=== PATIENT | female | born 1990 | race Caucasian/White ===

== ENCOUNTER 2019-03-16 13:24 | Inpatient (IN) ==
[2019-03-16] MEDS ORDERED: ONDANSETRON 4 MG/2 ML VIAL IV PRN ×2 (13:33→15:11)
[2019-03-16] MEDS ORDERED: LACTATED RINGERS 1,000 ML IV ONE (13:34)
[2019-03-16] MEDS ORDERED: FAMOTIDINE 20 MG/2 ML VIAL IV ONE (13:34)
[2019-03-16] MEDS ORDERED: CITRIC ACID/SODIUM CITRATE 30 ML UDCUP PO ONE (13:34)
[2019-03-16] MEDS ORDERED: diphenhydrAMINE 50 MG/1 ML VIAL IV PRN ×2 (13:34)
[2019-03-16] MEDS ORDERED: hydrOXYzine HCL 25 MG/1 ML VIAL IM PRN (13:34)
[2019-03-16] MEDS ORDERED: OXYTOCIN 10 UNIT/ML VIAL IM ONE (13:35)
[2019-03-16] MEDS ORDERED: CLINDAMYCIN INJ 900 MG in PREMIX 1 EACH IV ONE (13:35)
[2019-03-16] MEDS ORDERED: OXYTOCIN/LR 30 UNIT/1,000 ML BAG IV ONE (13:36)
[2019-03-16 13:53] LABS: Basophils % 0.3 % (0.0-0.8); Hematocrit 27.5 VOL% (35.7-47.0); Immature Granulocytes % 1.7 %; Immature Granulocytes Absolute 0.19 #; Lymphocytes # 1.8 10*3/uL (1.4-4.0); Lymphocytes % 16.2 % (21.3-54.2); Mean Corpuscular HGB Conc 29.1 GM/DL (32-36); Mean Corpuscular Volume 70.7 FL (87-102); Monocytes % 9.5 % (1.7-12.7); NRBC # 0.05 10*3/uL; Neutrophils % 72.3 % (38.7-73.9); Platelet Count 141 T/CUMM (130-400); Red Blood Count 3.89 MC/CUMM (3.8-5.5); Red Cell Distribution Width 18.4 % (9.3-17.3)
[2019-03-16] MEDS ORDERED: BUPIVACAINE SPINAL 0.75% 2 ML AMP SPINAL ONE (13:58)
[2019-03-16] MEDS ORDERED: PHENYLEPHRINE 1 MG/10 ML SYRINGE IV ONE (13:58)
[2019-03-16] MEDS ORDERED: MORPHINE 10 MG/10 ML VIAL ONE (13:59)
[2019-03-16] MEDS ORDERED: MIDAZOLAM 2 MG/2 ML VIAL ONE (13:59)
[2019-03-16] MEDS ORDERED: LACTATED RINGERS 1,000 ML IV SCH ×2 (14:00→15:30)
[2019-03-16] MEDS ORDERED: BUPIVACAINE 0.25% 50 ML VIAL ONE (14:05)
[2019-03-16] MEDS ORDERED: DEXAMETHASONE 4 MG/1 ML VIAL ONE (14:05)
[2019-03-16] MEDS ORDERED: EPINEPHrine 1 MG/ML VIAL ONE (14:06)
[2019-03-16 14:16] LABS: Albumin 2.5 G/DL (3.4-5.0); Bilirubin,Total 0.5 MG/DL (0.2-1.0); Calcium 8.4 MG/DL (8.5-10.1); Osmolality,Calculated 276.4 MOS/KG (273-304); Total Protein 6.9 G/DL (6.4-8.3)
[2019-03-16 14:40] LABS: Hypochromasia 1+; Lymphocytes 16 % (20-55); Platelet Estimate Adequate; Segmented Neutrophils 75 % (50-85); Total Cells Counted 100
[2019-03-16 14:41] LABS: Anisocytosis 1+; Microcytosis 1+; Ovalocytes Slight; Poikilocytosis 1+; Schistocytes Slight
[2019-03-16 15:08] LABS: Cord Arterial Blood HCO3 23.7 MMOL/L
[2019-03-16 15:11] LABS: Cord Venous Blood HCO3 24.9 MMOL/L; Cord Venous Blood PCO2 45.2 MMHG; Cord Venous Blood PO2 25.2
[2019-03-16] MEDS ORDERED: ACETAMINOPHEN 325 MG TABLET PO PRN (15:11)
[2019-03-16] MEDS ORDERED: OXYTOCIN/LR 20 UNIT/1,000 ML BAG IV ONE (15:11)
[2019-03-16] MEDS ORDERED: RHO(D) IMMUNE GLOBULIN 300 MCG SYRINGE IM ONE (15:11)
[2019-03-16] MEDS ORDERED: MAGNESIUM HYDROXIDE SUSP 30 ML UDCUP PO PRN (15:11)
[2019-03-16] MEDS ORDERED: KETAMINE 500 MG/10 ML VIAL ONE (15:26)
[2019-03-16 17:54] LABS: Apearance,Urine CLEAR (Clear); Bilirubin,Urine Negative (Negative); Blood, Urine Negative (Negative); Glucose,Urine (UA) Negative (Negative); Ketones,Urine Negative (Negative); Mucus,Urine Occasional /LPF (Occasional); Nitrite,Urine Negative (Negative); Protein,Urine 30 MG/DL; RBC,Urine 6 /HPF (0-4); Squamous Epithelial Cell,Urine Occasional /HPF (0-10); Urine Color Yellow (Yellow); Urine Specific Gravity 1.028 (1.001-1.035); WBC,Urine 25 /HPF (0-6)
[2019-03-16] MEDS: DOCUSATE SODIUM 100 MG CAPSULE PO SCH (21:04)
[2019-03-16] MEDS: FERROUS SULFATE 325 MG TABLET PO SCH (21:04)
[2019-03-16] MEDS ORDERED: ceFAZolin 1,000 MG in SYRINGE 1 EACH IV SCH (22:00)
[2019-03-16] MEDS: CLINDAMYCIN INJ 900 MG in PREMIX 1 EACH IV SCH (22:22)
[2019-03-16 22:45] LABS: Basophils % 0.1 % (0.0-0.8); Hematocrit 23.3 VOL% (35.7-47.0); Hemoglobin 6.8 GM/DL (12.0-16.0); Immature Granulocytes % 1.2 %; Immature Granulocytes Absolute 0.17 #; Lymphocytes # 1.4 10*3/uL (1.4-4.0); Lymphocytes % 9.9 % (21.3-54.2); Mean Corpuscular HGB Conc 29.2 GM/DL (32-36); NRBC # 0.04 10*3/uL; Neutrophils % 83.8 % (38.7-73.9); Platelet Count 122 T/CUMM (130-400); Red Blood Count 3.33 MC/CUMM (3.8-5.5); White Blood Count 14.5 T/CUMM (4-12)
[2019-03-16 23:04] LABS: Elliptocytes 2+; Hypochromasia 1+; Ovalocytes 1+; Platelet Estimate Normal
[2019-03-16 23:06] LABS: Microcytosis 1+
[2019-03-16] MEDS ORDERED: SODIUM CHLORIDE 0.9% 1,000 ML IV PRN (23:08)
[2019-03-17] MEDS: IBUPROFEN 800 MG TABLET PO PRN ×2 (00:20→11:58)
[2019-03-17] MEDS: CLINDAMYCIN INJ 900 MG in PREMIX 1 EACH IV SCH (06:23)
[2019-03-17] MEDS: DOCUSATE SODIUM 100 MG CAPSULE PO SCH ×2 (09:01→21:59)
[2019-03-17] MEDS: FERROUS SULFATE 325 MG TABLET PO SCH ×2 (09:01→21:59)
[2019-03-17] MEDS: METOCLOPRAMIDE 10 MG TABLET PO SCH ×3 (09:01→21:06)
[2019-03-17] MEDS: POTASSIUM CHLORIDE 20 MEQ TABLET PO SCH ×2 (09:01→21:59)
[2019-03-17] MEDS: MULTIVITAMIN (PRENATAL) TABLET PO SCH (09:01)
[2019-03-17 10:00] LABS: Basophils % 0.2 % (0.0-0.8); Eosinophils % 0.1 % (0.00-10.9); Hematocrit 30.8 VOL% (35.7-47.0); Hemoglobin 9.3 GM/DL (12.0-16.0); Immature Granulocytes % 1.6 %; Immature Granulocytes Absolute 0.21 #; Lymphocytes # 2.4 10*3/uL (1.4-4.0); Lymphocytes % 17.7 % (21.3-54.2); Mean Corpuscular HGB Conc 30.2 GM/DL (32-36); Mean Corpuscular Volume 72.5 FL (87-102); Monocytes % 8.6 % (1.7-12.7); NRBC # 0.11 10*3/uL; Neutrophils % 71.8 % (38.7-73.9); Platelet Count 120 T/CUMM (130-400); Red Blood Count 4.25 MC/CUMM (3.8-5.5); Red Cell Distribution Width 18.6 % (9.3-17.3); White Blood Count 13.4 T/CUMM (4-12)
[2019-03-17] MEDS: MAGNESIUM HYDROXIDE SUSP 30 ML UDCUP PO SCH ×2 (14:00→21:59)
[2019-03-18] MEDS: IBUPROFEN 800 MG TABLET PO PRN ×3 (00:03→19:30)
[2019-03-18] MEDS: METOCLOPRAMIDE 10 MG TABLET PO SCH ×4 (04:29→21:43)
[2019-03-18] MEDS: MAGNESIUM HYDROXIDE SUSP 30 ML UDCUP PO SCH ×2 (09:08→21:43)
[2019-03-18] MEDS: MULTIVITAMIN (PRENATAL) TABLET PO SCH (09:08)
[2019-03-18] MEDS: SIMETHICONE CHEW 80 MG TABLET PO PRN ×2 (09:08→21:43)
[2019-03-18] MEDS: FERROUS SULFATE 325 MG TABLET PO SCH ×2 (09:08→21:43)
[2019-03-18] MEDS: DOCUSATE SODIUM 100 MG CAPSULE PO SCH ×2 (09:08→21:43)
[2019-03-18 16:42] VITALS: BP 134/80
== END 2019-03-18 21:45 | disposition home or self-care (01) | DRG 540 ==
LOC: N.LDOUT 13:24 → N.LD 13:26 → N.OB 20:48
PROVIDERS: ADMIT Obstetrics & Gynecology; ATTEND Obstetrics & Gynecology
PROC: LDCSECT (ICD-10-PCS; 2019-03-16 14:30)